=== PATIENT | male | born 2000 | race Caucasian/White ===

== ENCOUNTER 2025-07-28 18:54 | Emergency (ER) | payer OTHER ==
[~2025-07-28] VITALS: Ht 177.8 cm; Wt 77.3 kg
[~2025-07-28 18:54] MED LIST: ACET300T47 PO; ALBU17IN INH; DEPA1TAB3 PO; HYDR-161 PO; LORA5SOL44 PO; PROZ20CA12 PO
[2025-07-28 21:55] LABS: BASO # 0.1 10^3/uL (0.0-0.2); BASO % 1.7 % (0.0-1.0); EOS # 0.1 10^3/uL (0.0-0.5); EOS % 1.1 % (0.0-3.0); LYMPH # 2.7 10^3/uL (1.5-5.0); LYMPH % 42.6 % (24.0-44.0); MONO # 0.5 10^3/uL (0.0-0.8); MONO % 7.5 % (2.0-8.0); NEUTROPHILS # 3.0 10^3/uL (1.5-8.5); NEUTROPHILS % 46.9 % (36.0-66.0); PLATELET COUNT, AUTOMATED 249 10^3/uL (150-450)
[2025-07-28 22:15] LABS: CALCIUM LEVEL 9.9 MG/DL (8.5-10.1); CARBON DIOXIDE LEVEL 26 MMOL/L (20-31); CHLORIDE LEVEL 106 MMOL/L (98-107); CREATININE FOR GFR 0.91 MG/DL (0.70-1.30); GLOMERULAR FILTRATION RATE > 90.0 (>60); MAGNESIUM LEVEL 2.2 MG/DL (1.8-2.4); POTASSIUM SERUM 4.0 MMOL/L (3.5-5.1); SODIUM LEVEL 147 MMOL/L (136-145)
[2025-07-28 22:24] LABS: ETHYL ALCOHOL (ETHANOL) 0.330 % (0.000-0.010)
[2025-07-28 22:33] VITALS: BP 168/108
[2025-07-28] MEDS: amLODIPine 10 MG TAB PO ONE (22:33)
[2025-07-29] MEDS: NICOTINE 21 MG/24 HR 1 EA TRANSDERMAL TD ONE (00:14)
[2025-07-29] MEDS: ACETAMINOPHEN 325 MG TAB PO ONE (02:24)
[2025-07-29 02:43] VITALS: BP 159/93; TEMP 98.5; O2SAT 96
== END 2025-07-29 02:46 | disposition short-term general hospital (02) ==
LOC: M ED 18:54
DX: F10.120 Alcohol abuse with intoxication, uncomplicated (principal); F17.210 Nicotine dependence, cigarettes, uncomplicated; Z79.899 Other long term (current) drug therapy